=== PATIENT | male | born 1980 | race Caucasian/White ===

== ENCOUNTER 2024-07-02 09:28 | Emergency (ER) | payer SELFPAY, OTHER ==
[2024-07-02] MEDS ORDERED: Silver Sulfadiazine 50 GM JAR ONE (09:41)
[2024-07-02] MEDS ORDERED: Ibuprofen 200 MG TAB ONE (11:31)
== END 2024-07-02 11:42 | disposition home or self-care (01) ==
LOC: CSHERS 09:28
DX: T20.212A Burn of second degree of left ear [any part, except ear drum], initial encounter (principal); T20.10XA Burn of first degree of head, face, and neck, unspecified site, initial encounter; Z55.6 Problems related to health literacy; Z87.19 Personal history of other diseases of the digestive system; X04.XXXA Exposure to ignition of highly flammable material, initial encounter
CPT/HCPCS: 99283